=== PATIENT | female | born 1960 | race Caucasian/White ===

== ENCOUNTER 2020-04-24 14:52 | Outpatient (CLI) | payer MEDICARE ==
[~2020-04-24 14:52] MED LIST: Iopamidol 370 76% 100 ML VIAL ONE
[2020-04-24 15:17] LABS: Estimated GFR-MDRD - POC Greater than 90
--- NOTE | 2020-04-24 16:10 | CT ---
HISTORY: Peripheral vascular disease COMPARISON: None TECHNIQUE: Multiple contiguous axial images were obtained a CTA of the abdomen, pelvis, and bilateral lower extremities with contrast. Sagittal and coronal 3-D MIP reformats were performed. FINDINGS: Liver: Unremarkable. Gallbladder: Unremarkable. Kidneys: Unremarkable. Adrenal glands: Unremarkable. Spleen: Unremarkable. Pancreas: Unremarkable. Bowel: Limited evaluation of the alimentary canal by the lack of oral contrast administration. No johnny dence of a bowel obstruction. Normal ileocecal junction. Normal caliber appendix. No periappendiceal inflammation. Scattered fecal material in a nondistended, nondilated colon.. Reproductive organs :Unremarkable. Retroperitoneum: No lymphadenopathy Bones: Degenerative changes in the spine. Inferior thorax: Unremarkable. Abdominal aorta. Normal caliber without evidence of dissection or aneurysmal dilatation. Celiac trunk: Patent SMA: Patent SIMBA: Patent Renal arteries: Solitary left and 2 right renal arteries without significant atherosclerotic disease. Minimal atherosclerosis involving the solitary left and the inferior right rib. Bilateral common iliac arteries: Unremarkable. Internal iliac arteries: Unremarkable. External iliac arteries: Unremarkable. Common femoral arteries: Unremarkable. Profunda femoral arteries: Unremarkable. Superficial femoral arteries: Unremarkable. Popliteal arteries: Right popliteal artery is patent. There is occlusion of the left popliteal artery . Via collateral flow, there does appear to be opacification of the left lower extremity arterial system as described below. Right lower extremity: 3 VESSEL RUNOFF WITHOUT SIGNIFICANT DISEASE single vessel runoff down to the l evel of the ankle via the anterior tibial artery. No significant opacification of the peroneal or posterior tibial artery Left lower extremity: 2 vessel runoff down to the level the ankle via the peroneal artery and anterio r tibial artery. IMPRESSION: 1. Occlusion of the left popliteal artery. There is recanalization in the left lower extremity with 2 vessel runoff. Transcribed Date/Time: 04/24/2020 4:40 PM
== END 2020-04-24 14:53 | disposition home or self-care (01) ==
LOC: BICCT 14:52
PROVIDERS: ATTEND Internal Medicine Cardiovascular Disease
DX: I73.9 Peripheral vascular disease, unspecified (principal); I70.8 Atherosclerosis of other arteries
CPT/HCPCS: 75635; 82565; Q9967

== ENCOUNTER 2020-05-17 12:29 | Outpatient (CLI) | payer MEDICARE ==
[2020-05-17 14:44] LABS: Hemoglobin 13.9 g/dL (12.0-15.5); Mean Corpuscular HGB CONC 34.8 g/dL (32.0-36.0); Mean Corpuscular Hemoglobin 34.7 pg (27.0-33.0); Mean Corpuscular Volume 99.5 fl (81.6-98.3); Mean Platelet Volume 8.8 fl (7.4-10.4); Platelet Count 244 10x3/uL (150-450); RBC Distribution Width 11.6 % (11.5-14.5); Red Blood Cell (RBC) Count 4.01 10x6/uL (3.90-5.03); White Blood Cell (WBC) Count 5.8 10x3/uL (3.5-10.5)
[2020-05-17 14:53] LABS: Anion Gap 15 mmol/L (10-20); BUN (Urea Nitrogen) Less than 4 mg/dL (9.8-20.1); Calc. Creatinine Clearance 0 mL/min (70-130); Calcium 8.8 mg/dL (7.8-10.44); Carbon Dioxide 28 mmol/L (23-31); Chloride 94 mmol/L (98-107); Glucose 69 mg/dL (80-115); Potassium 4.7 mmol/L (3.5-5.1); Sodium 132 mmol/L (136-145)
[2020-05-18 00:56] LABS: SARS-CoV-2 PCR by NAA Not Detected (NotDetected)
== END 2020-05-17 12:30 | disposition home or self-care (01) ==
LOC: LABBT 12:29
PROVIDERS: ATTEND Thoracic Surgery (Cardiothoracic Vascular Surgery)
DX: Z01.812 Encounter for preprocedural laboratory examination (principal); Z20.822 Contact with and (suspected) exposure to COVID-19
CPT/HCPCS: 80048; 85027; U0003; U0005; 87635

== ENCOUNTER 2020-05-22 10:38 | Inpatient (IN) | payer MEDICARE ==
[2020-05-22] MEDS ORDERED: Iopamidol 370 76% 50 ML VIAL FS ONE (11:44)
[2020-05-22] MEDS ORDERED: Lidocaine 1% (PF) 30 ML VIAL ONE (12:04)
[2020-05-22] MEDS ORDERED: Fentanyl 100 MCG/2 ML VIAL ONE ×2 (12:21→14:01)
[2020-05-22] MEDS ORDERED: Midazolam HCl 2 mg/2 ml Vial ONE (12:21)
[2020-05-22] MEDS ORDERED: Heparin 10,000 UNITS/ 10 ML VIAL ONE (12:47)
[2020-05-22] MEDS ORDERED: Acetaminophen ER (8hr) 650 MG TAB PO PRN (12:54)
[2020-05-22] MEDS ORDERED: Protamine Sulfate 50 MG/5 ML VIAL ONE (12:54)
[2020-05-22] MEDS ORDERED: Ondansetron ODT 4 MG TAB PO PRN (12:57)
[2020-05-22] MEDS ORDERED: Fentanyl 100 MCG/2 ML VIAL SLOW IVP PRN (13:00)
[2020-05-22] MEDS ORDERED: traMADol HCl 50 MG TAB PO PRN ×2 (13:00)
[2020-05-22] MEDS ORDERED: traMADol HCl 50 MG TAB ONE (15:20)
[2020-05-23] MEDS ORDERED: Protamine Sulfate 50 MG/5 ML VIAL ONE ×2 (06:37→17:28)
[2020-05-23] MEDS ORDERED: Heparin 5,000 UNITS/ML VIAL ONE ×2 (06:37→17:28)
[2020-05-23] MEDS ORDERED: Fentanyl 100 MCG/2 ML VIAL ONE ×7 (07:12→20:14)
[2020-05-23] MEDS ORDERED: CEFAZOLIN 2 GM in Premix Bag 1 BAG IVPB SCH (07:30)
[2020-05-23] MEDS ORDERED: CITICOLINE 500 MG PO SCH (09:00)
[2020-05-23] MEDS ORDERED: Ondansetron PF 4 MG/2 ML Vial ONE ×2 (09:20→09:22)
[2020-05-23] MEDS ORDERED: PROPOFOL 200 MG/20 ML VIAL ONE ×2 (09:20→09:22)
[2020-05-23] MEDS ORDERED: Labetalol HCl 100 MG/20 ML VIAL ONE (09:20)
[2020-05-23] MEDS ORDERED: PHENYLEPHRINE-NS 100 MCG/ML 10 ML SYRINGE ONE ×2 (09:20→09:22)
[2020-05-23] MEDS ORDERED: Esmolol 100 MG/10 ML VIAL ONE (09:20)
[2020-05-23] MEDS ORDERED: Lidocaine 1% PF 5 ML VIAL ONE ×2 (09:20→09:22)
[2020-05-23] MEDS ORDERED: Succinylcholine 200 MG/10 ml SYRINGE FS ONE (09:20)
[2020-05-23] MEDS ORDERED: ePHEDrine 50 MG/ML VIAL ONE ×2 (09:20→09:22)
[2020-05-23] MEDS ORDERED: Dexamethasone 20 MG/5 ML VIAL ONE (09:22)
[2020-05-23 10:39] VITALS: BMI 15.7
[2020-05-23] MEDS: Cyanocobalamin (Vitamin B-12) 1,000 MCG TAB PO SCH (12:35)
[2020-05-23] MEDS: Cholecalciferol 1,000 UNITS (25 MCG) TAB PO SCH (12:35)
[2020-05-23] MEDS: Folic Acid 1 MG TAB PO SCH (12:36)
[2020-05-23] MEDS: Meloxicam 15 MG TAB PO SCH (12:36)
[2020-05-23] MEDS: Fentanyl 100 MCG/2 ML VIAL SLOW IVP PRN (16:56)
[2020-05-23] MEDS ORDERED: Morphine 4 MG/ML VIAL ONE (17:15)
[2020-05-23] MEDS ORDERED: Midazolam HCl 2 mg/2 ml Vial ONE (17:17)
[2020-05-23] MEDS ORDERED: Propofol 1,000 MG/100 ML VIAL IV ONE (18:56)
[2020-05-24] MEDS ORDERED: Clopidogrel Bisulfate 75 MG TAB PO SCH (09:00)
[2020-05-24] MEDS: Clopidogrel Bisulfate 75 MG TAB PO SCH (09:00)
[2020-05-24] MEDS: Cholecalciferol 1,000 UNITS (25 MCG) TAB PO SCH (09:00)
[2020-05-24] MEDS: Folic Acid 1 MG TAB PO SCH (09:01)
[2020-05-24] MEDS: Cyanocobalamin (Vitamin B-12) 1,000 MCG TAB PO SCH (09:01)
[2020-05-24] MEDS: Aspirin 81 mg Enteric Coated Tablet PO SCH (09:01)
[2020-05-24] MEDS: Meloxicam 15 MG TAB PO SCH (09:03)
[2020-05-24] MEDS: Fentanyl 100 MCG/2 ML VIAL SLOW IVP PRN (11:34)
[2020-05-24 14:49] LABS: Reference Lab Name LABCORP
[2020-05-24 14:50] LABS: Ref Lab Test Ordered RBC CHOLINESTERASE
[2020-05-24 14:51] LABS: Ref Lab Test Ordered DIBUCAINE NUMBER; Reference Lab Name LABCORP
[2020-05-25] MEDS: Cyanocobalamin (Vitamin B-12) 1,000 MCG TAB PO SCH (08:51)
[2020-05-25] MEDS: Meloxicam 15 MG TAB PO SCH (08:52)
[2020-05-25] MEDS: Folic Acid 1 MG TAB PO SCH (08:52)
[2020-05-25] MEDS: Aspirin 81 mg Enteric Coated Tablet PO SCH (08:52)
[2020-05-25] MEDS: Cholecalciferol 1,000 UNITS (25 MCG) TAB PO SCH (08:52)
[2020-05-25] MEDS: Clopidogrel Bisulfate 75 MG TAB PO SCH (08:52)
[2020-05-26] MEDS ORDERED: Furosemide 20 MG TAB PO SCH (07:15)
[2020-05-26] MEDS ORDERED: Potassium Chloride 10 MEQ TAB PO ONE (08:00)
[2020-05-26] MEDS: Cholecalciferol 1,000 UNITS (25 MCG) TAB PO SCH (09:09)
[2020-05-26] MEDS: Folic Acid 1 MG TAB PO SCH (09:09)
[2020-05-26] MEDS: Aspirin 81 mg Enteric Coated Tablet PO SCH (09:09)
[2020-05-26] MEDS: Meloxicam 15 MG TAB PO SCH (09:10)
[2020-05-26] MEDS: Clopidogrel Bisulfate 75 MG TAB PO SCH (09:11)
[2020-05-26] MEDS: Cyanocobalamin (Vitamin B-12) 1,000 MCG TAB PO SCH (09:11)
[2020-05-26 11:59] VITALS: BP 134/58; TEMP 98.3
== END 2020-05-26 13:18 | disposition home or self-care (01) | DRG 253 ==
LOC: CCL 10:38 → 2NO 13:02 → CCU 05-23 10:54 → 2NO 05-23 14:03
PROVIDERS: ADMIT Thoracic Surgery (Cardiothoracic Vascular Surgery); ATTEND Thoracic Surgery (Cardiothoracic Vascular Surgery)
PROC: B41D1ZZ Fluoroscopy of Aorta and Bilateral Lower Extremity Arteries using Low Osmolar Contrast (ICD-10-PCS; 2020-05-22)
PROC: 041L09N Bypass Left Femoral Artery to Posterior Tibial Artery with Autologous Venous Tissue, Open Approach (ICD-10-PCS; principal; 2020-05-23)
PROC: 06BQ0ZZ Excision of Left Saphenous Vein, Open Approach (ICD-10-PCS; 2020-05-23)
PROC: 04L Lower Arteries, Occlusion (ICD-10-PCS; 2020-05-23)
PROC: 0JCP0ZZ Extirpation of Matter from Left Lower Leg Subcutaneous Tissue and Fascia, Open Approach (ICD-10-PCS; 2020-05-23)
DX: I73.9 Peripheral vascular disease, unspecified (principal); M79.A22 Nontraumatic compartment syndrome of left lower extremity; I97.638 Postprocedural hematoma of a circulatory system organ or structure following other circulatory system procedure; J44.9 Chronic obstructive pulmonary disease, unspecified; Z79.02 Long term (current) use of antithrombotics/antiplatelets; M19.90 Unspecified osteoarthritis, unspecified site; F17.210 Nicotine dependence, cigarettes, uncomplicated; I70.244 Atherosclerosis of native arteries of left leg with ulceration of heel and midfoot; Z82.49 Family history of ischemic heart disease and other diseases of the circulatory system; Z88.5 Allergy status to narcotic agent; Y92.238 Other place in hospital as the place of occurrence of the external cause; Z80.9 Family history of malignant neoplasm, unspecified; E53.8 Deficiency of other specified B group vitamins; Y83.8 Other surgical procedures as the cause of abnormal reaction of the patient, or of later complication, without mention of misadventure at the time of the procedure; Z83.3 Family history of diabetes mellitus
CPT/HCPCS: 36247; 76942; 86850; 86900; 86901; 94002; 99152; J0690; J1100; J1644; J2001; J2250; J2270; J2405; J2704; J2720; J3010; J3490; Q0162; Q9967

== ENCOUNTER 2020-06-13 12:38 | Outpatient (CLI) | payer MEDICARE | END 2020-06-13 12:39 | disposition home or self-care (01) | LOC: BICMAMMO 12:38 | PROVIDERS: ATTEND Family Medicine | DX: Z12.31 Encounter for screening mammogram for malignant neoplasm of breast (principal) | CPT/HCPCS: 77063; 77067 ==